=== PATIENT | female | born 1955 | race African-American/Black ===

== ENCOUNTER → 2017-01-18 | Day surgery (SDC) | payer OTHER ==
--- NOTE | 2017-01-15 12:58 | History & Physical Pre-Op ---
General Information and HPI History of Present Illness: Mamie is a 61-year-old female with a long-standing and worsening complaint of a painful bunion right foot and painful hammertoes involving the second third digits right foot. The patient has undergone an extended course of conservative care, including shoe gear and activity modification, rest, immobilization and courses of NSAIDs. None of this is yielded her any significant relief. The patient presents today for preoperative surgical consultation. Allergies/Medications Allergies: Coded Allergies: NO KNOWN ALLERGIES (04/09/16) Home Med list Albuterol Sulfate (Proair Hfa) 90 MCG HFA.AER.AD 2 PUF INH Q4-6 PRN PRN ASTHMA (Reported) Atenolol 25 MG TAB 1 TAB PO DAILY BP (Reported) Glyburide 5 MG TAB 10 MG PO BID DIABETES (Reported) Liraglutide (Victoza 2-Luis) 0.6 MG/0.1 ML (18 MG/3 ML) PEN.INJCTR 1.8 UNITS SC DAILY DM II (Reported) Losartan Potassium (Cozaar) 50 MG TABLET 1 TAB PO DAILY HTN (Reported) METFORMIN HCL (Metformin) 1,000 MG TAB 1 TAB PO BID DIABETES (Reported) MOMETASONE/FORMOTEROL (Dulera 100 Mcg/5 Mcg Inhaler) 1 DIVYA DIVYA 2 INH INH BID PRN ASTHMA (Reported) [ROPINIROLE] RESTLESS LEGS (Reported) SERTRALINE HCL (Sertraline HCl) 50 MG TAB 1 TAB PO DAILY BIPOLAR (Reported) Simvastatin 40 MG TAB 1 TAB PO QPM CHOLESTEROL (Reported) Past History Medical History Neurological: NONE EENT: NONE Cardiovascular: hypertension, hyperlipidemia Respiratory: asthma Gastrointestinal: NONE Hepatic: NONE Renal: NONE Musculoskeletal: osteoarthritis Psychiatric: NONE Endocrine: diabetes Blood Disorders: NONE 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 Ambulation: independent Review of Systems Review of Systems: Unremarkable except for that noted in history of present illness Exam & Diagnostic Data Physical Exam: Lungs clear bilaterally. Heart sounds rate and rhythm regular. Lower extremity physical exam demonstrates intact pedal pulses bilaterally. Pulses dorsalis pedis and posterior tibial arteries are palpable bilaterally. Patient without any sensory motor deficits. Deep tendon reflexes grossly intact. Patient noted to have significant pain with palpation or range of motion through the right first metatarsophalangeal joint. There is also pain noted with palpation to the dorsal aspect of the proximal interphalangeal joints of the second third digits right foot. Assessment/Plan Assessment/Plan: Painful bunion and hammertoes right foot. A lengthy discussion reviewing both surgical and conservative options was held the patient at bedside and the patient elects to go forward with surgery despite the risks. As Ranked By This Provider Problem List: 1. Acquired hallux valgus of right foot Attending MD Review Statement Attending Statement Attending MD Statement: examined this patient
[~2017-01-18] VITALS: Ht 172.7 cm; Wt 104.3 kg
[~2017-01-18] MED LIST: ATENOLOL25 MG PO; COUMADIN 5 MG TA5 MG PO; COZAAR50 M1 PO; DOCUSATE SODIU100 MG PO; DULERA1 ARO INH; GABAPENTIN100 M1 PO; GLYBURIDE5 MG PO; HYZAAR 25 MG-101 TAB PO; MAGNESIUM200 MG PO; METFORMIN1000 MG PO; NICODERM C21 MG/24 H TOP; PERCOCET 325 MG1 TA2 PO; PROAIR HFA8.5 GM INH; ROPINIROLE; SERTRALINE50 MG PO; SIMVASTATIN40 MG PO; TYLENOL TAB 32325 MG PO; VICTOZA 2-0.6 MG/0.1 SC; VITAB121000 PO
--- NOTE | 2017-01-18 10:19 | Operative Report ---
Operative/Inv Procedure Report Surgery Date: 01/18/17 Name of Procedure: 1 Harrison bunionectomy right foot 2 arthroplasty second toe right foot 3 arthroplasty third toe right foot Pre-Operative Diagnosis: 1 hallux valgus right foot 2 hammertoe second toe right foot 3 hammertoe third toe right foot Post-Operative Diagnosis: The same Estimated Blood Loss: scant Surgeon/Filbert Grower: HARDIK JOHN DPM Anesthesia: moderate sedation, block Operative/Procedure Note Note: After obtaining informed consent the patient was brought to the operating room and placed on the operating table in supine position. The patient isn't securely fastened to the operating table utilizing safety belt. After administration of IV sedation, 10 mL of 0.5% Marcaine plain was infiltrated about the patient's right ankle. 2 g of Ancef were delivered intravenously times one dose. A well-padded ankle tourniquet was placed about the patient's right lower extremity. The right foot and ankle within scrubbed prepped and draped in usual aseptic manner. The right lower extremity was elevated to examine to limb, which point the ankle tourniquet was inflated 250 mmHg. Attention directed dorsal aspect the right foot, where 6 cm linear incision was made just medial to course of the extensor hallucis longus tendon. Skin was as a 15 blade and deepened subtenons tissues. All vital neurovascular structures were identified protected. The dissection was then carried down to the capture structures, where an inverted L capsulotomy was performed exposing the medial eminence. This was then resected with sagittal bone saw. Attention was then directed to the interspace, where a lateral release was performed with sectioning of the fibular suspensory ligament and the oblique head of the abductor hallucis tendon. The extensor listless peritenon was identified and tenotomized. The dissection was then carried distally onto the proximal phalanx with the periosteum incised reflected. A medially based wedge osteotomy was performed and then fixated utilizing standard AO fixation techniques. The capture structures were reapproximated with 3-0 Vicryl and the subtenons tissues reapproximated 4-0 Vicryl. The skin is then reapproximated 4-0 Monocryl. Attention was then directed to the proximal interphalangeal joints of the second third digits. 2 converging semielliptical incisions centered over the proximal interphalangeal joints were incised with 15 blade and deepened subtenons tissues. The ellipses of skin were freed and passed from the operative field. Extensor tenotomies were then performed exposing the heads of the proximal phalanges of the second third digits. These were then resected with sagittal bone saw. The extensor tendons were reapproximated 4-0 Vicryl and the skin edges reapproximated 4-0 nylon. Incision was dressed with Xeroform 4 x 4's Kerlix and Hasmukh wrap. The patient noted tolerate both procedure and anesthesia well and the patient was transported from the operating room to recovery by sent stable best assess intact all digits right foot.
== END ==
LOC: STS 02:39
DX: M20.11 Hallux valgus (acquired), right foot (principal); M20.41 Other hammer toe(s) (acquired), right foot; E11.8 Type 2 diabetes mellitus with unspecified complications; Z79.84 Long term (current) use of oral hypoglycemic drugs; F17.200 Nicotine dependence, unspecified, uncomplicated
CPT/HCPCS: 88304; 88305; J1885; J2001; J2250

== ENCOUNTER 2017-02-14 17:58 | Emergency (ER) | payer OTHER ==
[~2017-02-14] VITALS: Ht 172.7 cm; Wt 104.3 kg
[2017-02-14 18:43] LABS: ABSOLUTE BASOPHIL COUNT 0 /CUMM (0.0-0.2); ABSOLUTE EOSINOPHIL COUNT 0.1 /CUMM (0.0-0.7); ABSOLUTE GRANULOCYTE CT 6.3 /CUMM (1.4-6.5); ABSOLUTE MONOCYTE COUNT 0.7 /CUMM (0.10-0.60); BASOPHIL % 0.2 % (0.0-2.0); EOSINOPHIL % 1.2 % (0-5); HEMATOCRIT 36.3 % (37-47); MEAN CORPUSCULAR HGB 28.1 PG (27.0-31.0); MEAN CORPUSCULAR HGB CONC 32.8 G/DL (33.0-37.0); MEAN CORPUSCULAR VOLUME 85.8 FL (81.0-99.0); MEAN PLATELET VOLUME 9.3 FL (7.4-10.4); PLATELET COUNT 239 /CUMM (130-400); RBC DISTRIBUTION WIDTH 13.6 % (11.5-14.5); RED BLOOD CELL CT 4.24 /CUMM (4.20-5.40); WHITE BLOOD CELL COUNT 10.2 /CUMM (4.8-10.8)
--- NOTE | 2017-02-14 18:43 | RADIOLOGY REPORT ---
EXAMINATION: XR FOOT, RIGHT CLINICAL INFORMATION: Wound dehiscence. Concern for osteomyelitis. COMPARISON: None TECHNIQUE: AP, lateral, and oblique views of the right foot. FINDINGS: Patient has had prior osteotomy of the medial side of the head of the first metatarsal, status post hallux valgus surgery. Orthopedic screw through proximal to mid shaft of the proximal phalanges of the great toe. There is focal bone destruction of the medial side of the head of the first metatarsal stenting from the periarticular bone into the metaphysis. This is consistent with osteomyelitis. The area of bone destruction lies adjacent to the head of the screw in the proximal phalanges. There is been prior osteotomy of the distal proximal phalanx of the second and third toe. Small plantar calcaneal spur. There is small spur at the dorsum of the talar neck at the talonavicular articulation. IMPRESSION: Radiographic evidence of osteomyelitis of the medial head of first metatarsal.
--- NOTE | 2017-02-14 20:42 | ED ANKLE/FOOT INJURY COMPLAINT ---
History of Present Illness General Chief Complaint: General Adult Stated Complaint: ?INFECTION OF RT FOOT S/P SURGERY X 1 MONTH AGO Source: patient, old records Exam Limitations: no limitations Vital Signs & Intake/Output Vital Signs & Intake/Output Vital Signs Date Time Temp Pulse Resp B/P B/P Pulse O2 O2 Flow FiO2 Mean Ox Delivery Rate 02/144 96 Room Air 02/15 2048 96.4 81 18 141/64 97 ED Intake and Output 02/15 0000 02/14 1200 Intake Total 0 Output Total Balance 0 Intake, IV 0 Patient 230 lb Weight Weight Reported by Patient Measurement Method Allergies Coded Allergies: NO KNOWN ALLERGIES (04/09/16) Reconcile Medications Albuterol Sulfate (Proair Hfa) 90 MCG HFA.AER.AD 2 PUF INH Q4-6 PRN PRN ASTHMA (Reported) Atenolol 25 MG TAB 1 TAB PO DAILY BP (Reported) Glyburide 5 MG TAB 10 MG PO BID DIABETES (Reported) Liraglutide (Victoza 2-Luis) 0.6 MG/0.1 ML (18 MG/3 ML) PEN.INJCTR 1.8 UNITS SC DAILY DM II (Reported) Losartan Potassium (Cozaar) 50 MG TABLET 1 TAB PO DAILY HTN (Reported) METFORMIN HCL (Metformin) 1,000 MG TAB 1 TAB PO BID DIABETES (Reported) MOMETASONE/FORMOTEROL (Dulera 100 Mcg/5 Mcg Inhaler) 1 DIVYA DIVYA 2 INH INH BID PRN ASTHMA (Reported) [ROPINIROLE] RESTLESS LEGS (Reported) SERTRALINE HCL (Sertraline HCl) 50 MG TAB 1 TAB PO DAILY BIPOLAR (Reported) Simvastatin 40 MG TAB 1 TAB PO QPM CHOLESTEROL (Reported) Triage Note: PT COMES IN AFTER HAVING SURGERY 1 MONTH AGO ON HER RIGHT GREAT TOE. PT STATES SHE HAD TWO HAMMER TOES AND HAS A SCREW IN HER TOE. PT HAS DRAINAGE COMING FROM SUTURE LINE THAT SEEMS TO HAVE DEHISED. PT HAD SURGERY BY DR. JOHN. Triage Nurses Notes Reviewed? yes HPI: Patient presents for evaluation of worsening numbness and black discoloration in the area of her right foot surgery that occurred about one month ago. Patient states symptoms have been constant and getting worse over the past 2 weeks. She denies any associated fever or trauma. She states she does get some drainage from the wound but denies any associated redness. Nothing seems to make her symptoms better at this point. Past History Travel History Traveled to [place] past 21 day No Medical History Any Pertinent Medical History? 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 No Review of Systems Review of Systems Constitutional: Reports: no symptoms. EENTM: Reports: no symptoms. Respiratory: Reports: no symptoms. Cardiovascular: Reports: no symptoms. GI: Reports: no symptoms. Genitourinary: Reports: no symptoms. Musculoskeletal: Reports: see HPI. Skin: Reports: see HPI. Neurological/Psychological: Reports: see HPI. Hematologic/Endocrine: Reports: no symptoms. Immunologic/Allergic: Reports: no symptoms. All Other Systems: Reviewed and Negative Physical Exam Physical Exam Leg/Knee/Thigh Left: SEE BELOW Comments: Gen.: Well-nourished, well-developed, no acute respiratory distress. Head: Normocephalic, atraumatic. Eyes: Normal inspection bilaterally Ears: Normal inspection bilaterally Nose: Normal inspection, nasal cannula in place Throat/mouth : Moist mucosa Neck: Supple, full range of motion, no goiter Heart: Regular rate and rhythm Lungs: Quiet respirations Back: Normal range of motion Extremities: Right foot: Longitudinal surgical scar over the dorsal aspect of the right metatarsal phalangeal joint with no obvious drainage or erythema. Surrounding this is an area of black discoloration and "hardness" that extends to the base of the second and third toes. Neurologic: Cranial nerves grossly intact, speech is clear Skin: warm and dry Psychiatric: Calm, cooperative, no apparent delusions or hallucinations Diagram Feet Top: 1) SURGICAL SCAR 2) BLACK DISCOLORATION/SKIN HARDNESS 3) BLACK DISCOLORATION/SKIN HARDNESS Progress Differential Diagnosis: HEMATOMA, SKIN NECROSIS, OSTEOMYELITIS Plan of Care: Orders Procedure Date/time Status COMPREHENSIVE METABOLIC PANEL 02/14 180 Complete CBC WITHOUT DIFFERENTIAL 02/14 1805 Complete Laboratory Tests 02/14/171814: Anion Gap 11, Estimated GFR 57 L, BUN/Creatinine Ratio 16.0, Glucose 82, Calcium 9.6, Total Bilirubin 1.0, AST 18, ALT 41, Alkaline Phosphatase 73, Total Protein 7.0, Albumin 4.0, Globulin 3.0, Albumin/Globulin Ratio 1.3, CBC w Diff NO MAN DIFF REQ, RBC 4.24, MCV 85.8, MCH 28.1, RDW 13.6, MPV 9.3, Gran % 62.0, Lymphocytes % 29.4, Monocytes % 7.2, Eosinophils % 1.2, Basophils % 0.2, Absolute Granulocytes 6.3, Absolute Lymphocytes 3.0, Absolute Monocytes 0.7 H, Absolute Eosinophils 0.1, Absolute Basophils 0, PUBS MCHC 32.8 L Comments: Patient's case discussed with Dr. John who will evaluate the patient's foot tomorrow during her prescheduled appointment. Possible hematoma formation versus skin necrosis discussed. Blood work and x-ray results reviewed with Dr. John. No specific care required other than current care. Patient notified. Departure Departure Disposition: HOME OR SELF CARE Condition: Stable Clinical Impression Primary Impression: Osteomyelitis of toe of right foot Referrals: DORA HERNÁNDEZ,HARDIK ARANA MD,YAHIR (PCP/Family) Additional Instructions: Follow-up with Dr. John tomorrow as scheduled. Return immediately if you spike a fever, began vomiting or any other concerns or worsening. Please note that there might be incidental findings in your evaluation that are unrelated to the current emergency department visit. Please notify your primary care doctor about this emergency department visit in order to obtain and review all of the testing performed so that these incidental findings can be monitored as needed. If you had an x-ray performed, please understand that some fractures may not be seen on the initial set of x-rays. If your symptoms persist you might need a repeat set of x-rays to check for such a fracture. If you had a laceration evaluated, please understand that foreign bodies such as glass or wood may not be visible to the naked eye or on plain x-rays. If the wound becomes red, swollen, increasingly more painful or if there is any drainage from the wound, please have it reevaluated by a physician for the possibility of a retained foreign body. Thank you for choosing the [facility] Emergency Department for your care. It was a pleasure to serve you today. Clinton Mora M.D. [facility] Thank you for choosing the [facility] Emergency Department for your care. It was a pleasure to serve you today. Clinton Mora M.D. [facility] Departure Forms: Customer Survey General Discharge Information
[2017-02-14 20:48] VITALS: BP 141/64
== END 2017-02-14 21:12 ==
LOC: ERH 17:58
PROVIDERS: Emergency Medicine
DX: M86.9 Osteomyelitis, unspecified (principal); I10 Essential (primary) hypertension; E11.9 Type 2 diabetes mellitus without complications; Z79.84 Long term (current) use of oral hypoglycemic drugs; Z72.0 Tobacco use
CPT/HCPCS: 73630-RT

== ENCOUNTER 2017-12-31 13:32 | Emergency (ER) | payer OTHER ==
[~2017-12-31] VITALS: Ht 172.7 cm; Wt 117.0 kg
[~2017-12-31 13:32] MED LIST changes: +ATENOLOL50 M1 PO; +DULERA 100 MCG/13 GM INH; -DULERA1 ARO INH; +GLYBURIDE5 M1 PO; -GLYBURIDE5 MG PO; +LIDOCAINE1 EACH TOP; +LOSARTAN POTAS100 M1 PO; +LOSARTAN-HCTZ1 EAC2 PO; +METFORMIN HCL1000 M1 PO; -METFORMIN1000 MG PO; +REQUIP0.25 MG PO; -SERTRALINE50 MG PO; +SIMVASTATIN10 M1 PO; +VICTOZA 3-0.6 MG/0.1 SC; +ZOLOFT50 M1 PO
--- NOTE | 2017-12-31 14:51 | ED GENERAL ADULT ---
History of Present Illness General Chief Complaint: Shoulder Injury Stated Complaint: RT SHOULDER PAIN Source: patient Exam Limitations: no limitations Vital Signs & Intake/Output Vital Signs & Intake/Output Vital Signs Date Time Temp Pulse Resp B/P B/P Pulse O2 O2 Flow FiO2 Mean Ox Delivery Rate 12/31 1343 96.6 83 18 136/78 94 Room Air Allergies Coded Allergies: NO KNOWN ALLERGIES (04/09/16) Reconcile Medications Albuterol Sulfate (Proair Hfa) 90 MCG HFA.AER.AD 2 PUF INH Q4-6 PRN PRN ASTHMA (Reported) Atenolol 50 MG TABLET 1 TAB PO DAILY HEART (Reported) Glyburide 5 MG TABLET 1 TAB PO BID DIABETES (Reported) Lidocaine 5 % ADH..PATCH 1 PAT TOP DAILY PAIN (Reported) Lidocaine (Lidoderm) 5 % ADH..PATCH 1 PAT TOP DAILY PRN shoulder pain may wear up to 12 hours Liraglutide (Victoza 3-Luis) 0.6 MG/0.1 ML (18 MG/3 ML) PEN.INJCTR 1.8 MG SC DAILY DIABETES (Reported) Losartan Potassium 100 MG TABLET 1 TAB PO DAILY HTN (Reported) Losartan/Hydrochlorothiazide (Losartan-Hctz 100-25 MG Tab) 100 MG-25 MG TABLET 1 TAB PO DAILY HEART (Reported) Metformin HCl 1,000 MG TABLET 1 TAB PO BID DIABETES (Reported) Methylprednisolone. (Medrol) 4 MG TAB.DS.PK 1 DP PO AD shoulder pain 6 on day 1 then reduce by one tablet daily until gone Mometasone/Formoterol (Dulera 100 Mcg/5 Mcg Inhaler) 100 MCG-5 MCG/ACTUATION HFA.AER.AD 2 PUF INH BID PRN SHORTNESS OF BREATH (Reported) Ropinirole Hydrochloride (Requip) 0.25 MG TABLET 2 TAB PO QPM RESTLESS LEGS ( Reported) Sertraline HCl (Zoloft) 50 MG TABLET 1 TAB PO DAILY CHOLESTEROL (Reported) Simvastatin (Simvastatin*) 10 MG TABLET 1 TAB PO QPM CHOLESTEROL (Reported) Triage Note: PT TO ER C/C RIGHT SHOULDER PAIN X YEARS, WORSE RECENTLY. NO KNOWN INJURY OR TRAUMA Triage Nurses Notes Reviewed? yes Onset: Gradual Duration: day(s): Timing: constant HPI: 62 y/o female with h/o HTN, HLD, DM, chronic right shoulder pain presenting with acute on chronic right shoulder pain over the past 2-3 days. Reports diffuse shoulder pain that is worse with movement. Has had difficulty ranging her shoulder. Seen by her PMD 2 days ago and sent for XR. Has not yet received results. Has been using NSAID's without relief. Denies fevers, joint swelling, or trauma. (Hannah Hillman) Past History Travel History Traveled to [place] past 21 day No Medical History Any Pertinent Medical History? 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 No (Hannah Hillman) Review of Systems Review of Systems Constitutional: Reports: no symptoms. EENTM: Reports: no symptoms. Respiratory: Reports: no symptoms. Cardiovascular: Reports: no symptoms. GI: Reports: no symptoms. Genitourinary: Reports: no symptoms. Musculoskeletal: Reports: see HPI. Skin: Reports: no symptoms. Neurological/Psychological: Reports: no symptoms. Hematologic/Endocrine: Reports: no symptoms. Immunologic/Allergic: Reports: no symptoms. (Hannah Hillman) Physical Exam Physical Exam General Appearance: well developed/nourished, no apparent distress, alert, awake , comfortable Head: atraumatic, normal appearance Eyes: Bilateral: normal appearance. Neck: normal inspection Respiratory: normal breath sounds, lungs clear Cardiovascular: regular rate/rhythm Gastrointestinal: soft, non-tender Back: normal inspection Extremities: normal inspection, On exam of the right shoulder there is no erythema, edema, increased warmth, or signs of trauma. Diffuse TTP that is non- focal. Decreased ROM with both active and passive ranging in all directions. Sensation intact. Motor strength decreased. Radial pulse 2+. Hand saw offbearer strength intact. Neurologic/Psych: awake, alert, oriented x 3, normal gait, normal mood/affect Skin: intact, normal color, warm/dry Core Measures ACS in differential dx? No CVA/TIA Diagnosis: No Sepsis Present: No Sepsis Focused Exam Completed? No (Hannah Hillman) Progress Differential Diagnoses I considered the following diagnoses in my evaluation of the patient: [ tendonitis vs bursitis vs OA vs MSK strain, low concern for septic joint] Plan of Care: Orders Procedure Date/time Status XRY-SHOULDER COMPLETE-RIGHT 12/31 1451 Active XR from PMD's office 2 days ago showed the following: IMPRESSION: 1. Mild osteoarthrosis is noted at the right acromioclavicular joint. 2. Tiny soft tissue calcification is noted around the humeral head, consistent with rotator cuff calcific tendinitis versus subacromial-subdeltoid bursitis or combination thereof. Pt had no relief from lidoderm patch. Has already been using NSAIDs without relief. Will trial medrol dose pack. Pt instructed she must monitor her glucose more closely and call her PMD for any high glucose levels as they may increase with steroids. Pt will f/u with ortho and given strict return precautions. Initial ED EKG: none (Hannah Hillman) Departure Departure Disposition: HOME OR SELF CARE Condition: Stable Clinical Impression Primary Impression: Right shoulder pain Referrals: Dasia Wu APRN (PCP/Family) Additional Instructions: Continue naproxen and Lidoderm patches as needed for pain. Take Medrol dosepak as prescribed. Return to monitor urine glucose levels more closely as this medication may increase her blood sugar. Call your primary care provider for any high glucose levels. Follow-up with for reevaluation. Return to the emergency department for any new or worsening symptoms. Departure Forms: Customer Survey General Discharge Information Prescriptions: Current Visit Scripts Lidocaine (Lidoderm) 1 PAT TOP DAILY PRN shoulder pain #30 PAT may wear up to 12 hours Methylprednisolone. 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 I have also reviewed all the pertinent lab results and diagnostic results. I agree with the findings and the plan of care as documented in the PA's/FRENCH EDGE OPERATOR's documentation. [] I have reviewed the ED Record and agree with the PA's/FRENCH EDGE OPERATOR's documentation. [] Additions or exceptions (if any) to the PAs/FRENCH EDGE OPERATOR's note and plan are summarized below: [] (Hipona MD,Chet) Critical Care Note Critical Care Note Critical Care Time: non-applicable (Antonia VALERIO,Hannah)
[2017-12-31 16:30] VITALS: BP 130/76
[2017-12-31] MEDS ORDERED: MEDROL4 M2 PO (16:45)
[2017-12-31] MEDS ORDERED: LIDODERM1 EACH TOP (16:45)
[2018-03-17] MEDS ORDERED: SERTRALINE HCL100 MG PO (22:45)
[2018-03-17] MEDS ORDERED: ATENOLOL25 M1 PO (22:46)
[2018-03-17] MEDS ORDERED: BIOTIN800 MCG PO (22:47)
[2018-03-17] MEDS ORDERED: VITAMIN D2000 UNI1 PO (22:47)
[2018-03-17] MEDS ORDERED: NAPROXEN500 M2 PO (22:47)
[2018-03-18] MEDS ORDERED: PERCOCET 5-3251 EACH PO (00:12)
== END 2017-12-31 18:24 ==
LOC: ERH 13:32
DX: M25.511 Pain in right shoulder (principal)

== ENCOUNTER 2018-03-22 17:50 | Emergency (ER) | payer OTHER ==
[~2018-03-22] VITALS: Ht 172.7 cm; Wt 113.4 kg
[~2018-03-22 17:50] MED LIST changes: +ATENOLOL25 M1 PO; +BIOTIN800 MCG PO; +LIDODERM1 EACH TOP; +MEDROL4 M2 PO; +NAPROXEN500 M2 PO; +PERCOCET 5-3251 EACH PO; +SERTRALINE HCL100 MG PO; +VITAMIN D2000 UNI1 PO
--- NOTE | 2018-03-22 19:25 | RADIOLOGY REPORT ---
EXAMINATION: XR WRIST, LEFT CLINICAL INFORMATION: Dogbite with question of fracture. COMPARISON: None. TECHNIQUE: PA, lateral, and oblique views of the left wrist. FINDINGS: Marked degenerative changes are present at the base of the thumb with osteophyte formation and sclerosis and erosions as well as some subluxation. No acute fractures are seen. There is some apparent disruption of the soft tissues on the ventral aspect of the wrist with soft tissue swelling. IMPRESSION: Marked degenerative changes at the base of the thumb with some subluxation. Soft tissue swelling and disruption of the soft tissues on the ventral aspect of the wrist.
--- NOTE | 2018-03-22 20:21 | RADIOLOGY REPORT ---
EXAMINATION: LEFT KNEE 3 VIEWS CLINICAL INFORMATION: Chronic left knee pain. COMPARISON: None. TECHNIQUE: AP, lateral, oblique views of the left knee were obtained. FINDINGS: There are no fractures or dislocations. There is no knee joint effusion. There is no significant soft tissue swelling. There is mild superior patellar spurring. There is mild tibial spine spurring. IMPRESSION: Mild degenerative change without evidence of acute injury.
[2018-03-22] MEDS ORDERED: AUGMENTIN 875-1 EACH PO (21:49)
--- NOTE | 2018-03-22 21:49 | ED GENERAL ADULT ---
History of Present Illness General Chief Complaint: Animal/Insect Bite Stated Complaint: DOG BITE Source: patient Exam Limitations: no limitations Vital Signs & Intake/Output Vital Signs & Intake/Output Vital Signs Date Time Temp Pulse Resp B/P B/P Pulse O2 O2 Flow FiO2 Mean Ox Delivery Rate 03/22 2151 72 18 120/73 96 Room Air 03/22 2035 66 18 118/60 98 Room Air 03/22 1759 97.1 92 18 132/78 95 Room Air ED Intake and Output 03/23 0000 03/22 1200 Intake Total 240 Output Total Balance 240 Intake, Oral 240 Patient 250 lb Weight Allergies Coded Allergies: NO KNOWN ALLERGIES (04/09/16) Reconcile Medications Albuterol Sulfate (Proair Hfa) 90 MCG HFA.AER.AD 2 PUF INH Q4-6 PRN PRN ASTHMA (Reported) Amoxicillin/Potassium Clav (Augmentin 875-125 Tablet) 875 MG-125 MG TABLET 1 TAB PO BID dog bite Atenolol 25 MG TABLET 1 TAB PO DAILY BP (Reported) Biotin (Unknown Strength) TABLET (Unknown Dose) PO DAILY SUPPLEMENT (Reported ) Cholecalciferol (Vitamin D3) (Vitamin D) (Unknown Strength) TABLET (Unknown Dose) PO DAILY SUPPLEMENT (Reported) Glyburide 5 MG TABLET 2 TAB PO BID DIABETES (Reported) Liraglutide (Victoza 3-Luis) 0.6 MG/0.1 ML (18 MG/3 ML) PEN.INJCTR 1.8 MG SC DAILY DIABETES (Reported) Losartan/Hydrochlorothiazide (Losartan-Hctz 100-25 MG Tab) 100 MG-25 MG TABLET 1 TAB PO DAILY HEART (Reported) Metformin HCl 1,000 MG TABLET 1 TAB PO BID DIABETES (Reported) Mometasone/Formoterol (Dulera 100 Mcg/5 Mcg Inhaler) 100 MCG-5 MCG/ACTUATION HFA.AER.AD 2 PUF INH BID PRN SHORTNESS OF BREATH (Reported) Naproxen 500 MG TABLET 1 TAB PO Q12H PRN PAIN (Reported) Oxycodone HCl/Acetaminophen (Percocet 5-325 MG Tablet) 5 MG-325 MG TABLET 1 TAB PO BID pain Ropinirole Hydrochloride (Requip) 0.25 MG TABLET 2 TAB PO QPM RESTLESS LEGS ( Reported) Sertraline HCl 100 MG TABLET 1 TAB PO DAILY MENTAL HEALTH (Reported) Simvastatin (Simvastatin*) 10 MG TABLET 1 TAB PO QPM CHOLESTEROL (Reported) Triage Note: PT STATES THAT HER AND HER WERE BITTEN BY A DOG WHILE TRYING TO STOP DOG FROM ATTACKING THERE DOGS, PT WAS BIT ON L HAND /WRIST AND ALSO HAS ABRASIONS TO RLE FROM GROUND Triage Nurses Notes Reviewed? yes Onset: Abrupt Duration: minute(s): Timing: single episode today HPI: 62-year-old female with a history of hypertension, hyperlipidemia, diabetes, and asthma presenting with dog bites to her left wrist and right lower leg sustained just prior to arrival. Patient reports that her and her were breaking up a fight between her dog and 3 stray dogs when they were bit by 1 of the stray dogs. The stray dogs are being detained by animal control. Patient's tetanus was updated last Tuesday she was seen in the emergency department for a finger laceration that was sutured. Denies numbness or paresthesias. Past History Travel History Traveled to [place] past 21 day No Medical History Any Pertinent Medical History? see below for history Neurological: NONE EENT: NONE Cardiovascular: hypertension, hyperlipidemia Respiratory: asthma Gastrointestinal: NONE Hepatic: NONE Renal: NONE Musculoskeletal: osteoarthritis Psychiatric: NONE Endocrine: diabetes Blood Disorders: NONE Cancer(s): NONE HEAD OF ART/Reproductive: NONE History of MRSA: No History of VRE: No History of CDIFF: No Surgical History Surgical History: HAMMER TOE Psychosocial History Who do you live with Spouse Services at Home None What is your primary language Polish Tobacco Use: Never used ETOH Use: denies use Illicit Drug Use: denies illicit drug use Family History Hx Contributory? No Review of Systems Review of Systems Constitutional: Reports: no symptoms. EENTM: Reports: no symptoms. Respiratory: Reports: no symptoms. Cardiovascular: Reports: no symptoms. GI: Reports: no symptoms. Genitourinary: Reports: no symptoms. Musculoskeletal: Reports: see HPI. Skin: Reports: see HPI. Neurological/Psychological: Reports: no symptoms. Hematologic/Endocrine: Reports: no symptoms. Immunologic/Allergic: Reports: no symptoms. All Other Systems: Reviewed and Negative Physical Exam Physical Exam General Appearance: well developed/nourished, no apparent distress, alert, awake Head: atraumatic, normal appearance Eyes: Bilateral: normal appearance. Neck: normal inspection Respiratory: normal breath sounds, lungs clear Cardiovascular: regular rate/rhythm Gastrointestinal: soft, non-tender Back: normal inspection Extremities: ~1cm linear lac to medial left wrist and ~2-3 cm irregular lac to anterior left wrist, unrestricted ROM with wrist flexion, extension, ulnar/ radial deviation, sensation intact, motor strength 5/5, radial pulse 2+, annular abrasion to anterior distal RLE over the mid fung. THe RLE is NV intact. Neurologic/Psych: awake, alert, oriented x 3, normal gait, normal mood/affect Skin: intact, normal color, warm/dry Core Measures ACS in differential dx? No CVA/TIA Diagnosis: No Sepsis Present: No Sepsis Focused Exam Completed? No Progress Differential Diagnoses I considered the following diagnoses in my evaluation of the patient: [Dog bite versus rabies exposure versus tetanus exposure versus fracture versus tendon injury versus nerve injury versus vascular injury] Plan of Care: Current Medications Sig/Maurice Start time Last Medication Dose Stop Time Status Admin Rabies Immune 2,260 UNITS ONCE ONE 03/22 1900 UNVr Globulin 03/22 1901 (Rabies Immune Globlulin Inj) x-ray IMPRESSION: Marked degenerative changes at the base of the thumb with some subluxation. Soft tissue swelling and disruption of the soft tissues on the ventral aspect of the wrist. Patient has full unrestricted range of motion at the MCP and IP joint of the thumb. She is declining attempt to reduce possible subluxation. Patient's left wrist lacerations were extensively irrigated with normal saline and Betadine, and repaired with loose skin approximation. Abrasion to patient's right distal leg was extensively irrigated with sterile saline and Betadine, and was dressed with Xeroform and Kerlex. Patient was given first rabies vaccine, but pharmacy does not have enough rabies immunoglobulin in stock for administration today. Discussed with the ED MD and the patient can either follow up with another emergency department for administration today, or can return to our emergency department when the immunoglobulin is restocked as the patient has 7 days for it to be administered. Discussed with the patient and she would prefer to return to [place] for the rabies immunoglobulin. When the patient returns in 3 days for her second rabies vaccine and she will also be administered the rabies immunoglobulin at that time. During the patient's emergency department stay she began to feel shaky and diaphoretic, her blood sugar was noted to be 58, she was given to orange juices and a turkey sandwich with improvement of her blood sugar to 86. Patient had resolution of her symptoms and felt back to baseline after eating and drinking. Patient was counseled on wound care and strict return precautions. Initial ED EKG: none Departure Departure Disposition: HOME OR SELF CARE Condition: Stable Clinical Impression Primary Impression: Dog bite Referrals: Dasia Wu APRN (PCP/Family) Additional Instructions: Keep the wound clean and dry. Take Augmentin as prescribed. Follow up on Tuesday for your rabies immunoglobulin and your next rabies vaccine. Use Motrin as needed for pain. Follow-up with your primary care provider for reevaluation. Return to the emergency department for any new or worsening symptoms. Departure Forms: Customer Survey General Discharge Information Prescriptions: Current Visit Scripts Amoxicillin/Potassium Clav (Augmentin 875-125 Tablet) 1 TAB PO BID #20 TAB Procedures Laceration/Wound Repair Laceration/Wound Repair: Wound Location: upper extremity (left wrist) Wound's Depth, Shape: irregular (anterior wrist), linear (medial wrist) Irrigated w/ Saline (ccs): 360 Betadine Prep? Yes Anesthesia: 1% lidocaine Suture Size/Type: 5:0, nylon Number of Sutures: 3 (2 ant wrist and 1 med wrist) Tetanus Status: up to date Critical Care Note Critical Care Note Critical Care Time: non-applicable
[2018-03-22 21:51] VITALS: BP 120/73
== END 2018-03-22 21:57 ==
LOC: ERH 17:50
DX: S61.552A Open bite of left wrist, initial encounter (principal); S81.851A Open bite, right lower leg, initial encounter; W54.0XXA Bitten by dog, initial encounter
CPT/HCPCS: 73110-LT; 73560-LT; 90471; 96374; J2001

== ENCOUNTER 2018-03-28 10:30 | Emergency (ER) | payer OTHER ==
[~2018-03-28] VITALS: Ht 172.7 cm; Wt 113.4 kg
[~2018-03-28 10:30] MED LIST changes: +AUGMENTIN 875-1 EACH PO
[2018-03-28 10:32] VITALS: BP 145/75
--- NOTE | 2018-03-28 10:42 | ED ANIMAL BITE/WOUND CHECK ---
History of Present Illness General Chief Complaint: Suture Removal/Wound Recheck Stated Complaint: SUTURE REMOVAL Source: patient Exam Limitations: no limitations Vital Signs & Intake/Output Vital Signs & Intake/Output Vital Signs Date Time Temp Pulse Resp B/P B/P Pulse O2 O2 Flow FiO2 Mean Ox Delivery Rate 03/28 1032 98.3 86 20 145/75 96 Room Air Allergies Coded Allergies: NO KNOWN ALLERGIES (04/09/16) Reconcile Medications Albuterol Sulfate (Proair Hfa) 90 MCG HFA.AER.AD 2 PUF INH Q4-6 PRN PRN ASTHMA (Reported) Amoxicillin/Potassium Clav (Augmentin 875-125 Tablet) 875 MG-125 MG TABLET 1 TAB PO BID dog bite Atenolol 25 MG TABLET 1 TAB PO DAILY BP (Reported) Biotin (Unknown Strength) TABLET (Unknown Dose) PO DAILY SUPPLEMENT (Reported ) Cholecalciferol (Vitamin D3) (Vitamin D) (Unknown Strength) TABLET (Unknown Dose) PO DAILY SUPPLEMENT (Reported) Glyburide 5 MG TABLET 2 TAB PO BID DIABETES (Reported) Liraglutide (Victoza 3-Luis) 0.6 MG/0.1 ML (18 MG/3 ML) PEN.INJCTR 1.8 MG SC DAILY DIABETES (Reported) Losartan/Hydrochlorothiazide (Losartan-Hctz 100-25 MG Tab) 100 MG-25 MG TABLET 1 TAB PO DAILY HEART (Reported) Metformin HCl 1,000 MG TABLET 1 TAB PO BID DIABETES (Reported) Mometasone/Formoterol (Dulera 100 Mcg/5 Mcg Inhaler) 100 MCG-5 MCG/ACTUATION HFA.AER.AD 2 PUF INH BID PRN SHORTNESS OF BREATH (Reported) Naproxen 500 MG TABLET 1 TAB PO Q12H PRN PAIN (Reported) Oxycodone HCl/Acetaminophen (Percocet 5-325 MG Tablet) 5 MG-325 MG TABLET 1 TAB PO BID pain Ropinirole Hydrochloride (Requip) 0.25 MG TABLET 2 TAB PO QPM RESTLESS LEGS ( Reported) Sertraline HCl 100 MG TABLET 1 TAB PO DAILY MENTAL HEALTH (Reported) Simvastatin (Simvastatin*) 10 MG TABLET 1 TAB PO QPM CHOLESTEROL (Reported) Triage Note: PT TO ED FOR SUTURE REMOVAL TO LEFT WRIST PLACED 03/22. ALSO NEEDS 3RD RABIES VACCINE. Triage Nurses Notes Reviewed? yes Onset: Abrupt Duration: week(s): (1), better, continues in ED Timing: single episode today Injury Environment: home Is Injury an Animal Bite? Yes Animal Type: dog Context of Animal Attack: animals fighting Animal Immunization Status: unknown LMP (ages 10-50): post menopausal HPI: 62-year-old female presents for suture removal and rabies vaccine. Patient was seen here one week ago for a dog bite. The lacerations were sutured patient was placed on Augmentin and was given rabies vaccinations. She has been taking antibiotics as directed feels that the wounds are healing well. There's been no discharge. She does report still some swelling and some tenderness. No fevers or spreading redness. (Shayan Ellison) Past History Travel History Traveled to [place] past 21 day No Medical History Any Pertinent Medical History? see below for history Neurological: NONE EENT: NONE Cardiovascular: hypertension, hyperlipidemia Respiratory: asthma Gastrointestinal: NONE Hepatic: NONE Renal: NONE Musculoskeletal: osteoarthritis Psychiatric: NONE Endocrine: diabetes Blood Disorders: NONE Cancer(s): NONE [facility]/Reproductive: NONE History of MRSA: No History of VRE: No History of CDIFF: No Surgical History Surgical History: HAMMER TOE Psychosocial History Who do you live with Spouse Services at Home None What is your primary language Urdu Tobacco Use: Current Daily Use Daily Tobacco Use Amount/Type: => 5 Cigarettes daily ETOH Use: denies use Illicit Drug Use: denies illicit drug use Family History Hx Contributory? No (Shayan Ellison) Review of Systems Review of Systems Constitutional: Reports: no symptoms. EENTM: Reports: no symptoms. Respiratory: Reports: no symptoms. Cardiovascular: Reports: no symptoms. GI: Reports: no symptoms. Genitourinary: Reports: no symptoms. Musculoskeletal: Reports: no symptoms. Skin: Reports: see HPI (LACERATION). Neurological/Psychological: Reports: no symptoms. Hematologic/Endocrine: Reports: no symptoms. Immunologic/Allergic: Reports: no symptoms. All Other Systems: Reviewed and Negative (Shayan Ellison) Physical Exam Physical Exam General Appearance: well developed/nourished, no apparent distress, alert, awake Head: atraumatic, normal appearance Eyes: Bilateral: normal appearance, EOMI. Ears, Nose, Throat: hearing grossly normal Neck: normal inspection, supple, full range of motion Respiratory: no respiratory distress Peripheral Pulses: 2+ radial (R), 2+ radial (L) Back: normal inspection, normal range of motion Extremities: THERE ARE 2 1 CM WELL-HEALED LACERATIONS LOCATED ON THE LEFT WRIST. sMALL AMOUNT OF SOFT TISSUE SWELLING AND INDURATION NO FOCAL QUADRANT AREAS NO ERYTHEMA AND NO DISCHARGE NO TENDERNESS. fULL RANGE OF MOTION OF THE WRIST IS INTACT NEUROVASCULAR SUPPLY INTACT Neurologic/Psych: no motor/sensory deficits, awake, alert, oriented x 3, normal gait, normal mood/affect Skin: intact, normal color, warm/dry Lymphatic: no anterior cervical bing (Shayan Ellison) Progress Differential Diagnosis: abscess, cellulitis, joint infection, tenosysnovitis Plan of Care: Current Medications Sig/Maurice Start time Last Medication Dose Stop Time Status Admin Rabies Vaccine 1 SYR ONCE ONE 03/28 104 UNVr (Rabies (Vaccine) 03/28 1046 Inj (1ML)) Patient is here for suture removal. The wounds appear to be healing well. No signs of infection. Patient was instructed to continue antibiotics the sutures removed without difficulty. Warm compresses. Tylenol IBUPROFEN for pain. Rabies vaccine administered return in one week for next rabies vaccine and wound check. Discussed return to cautions return sooner with any concern. (Shayan Ellison) Departure Departure Disposition: HOME OR SELF CARE Condition: Stable Clinical Impression Primary Impression: Visit for suture removal Referrals: Dasia Wu APRN (PCP/Family) Additional Instructions: Keep area clean and dry. Continue antibiotics for full course. LOOK FOr signs of infection like redness swelling discharge or pain. Make a follow-up with YOUr primary care doctor for recheck in a few days. Monitor symptoms return or any concerns. Return in one week for final rabies vaccine Departure Forms: Customer Survey General Discharge Information (Shayan Ellison) PA/QUALITY CONTROL DIRECTOR Co-Sign Statement Statement: ED Attending supervision documentation- [] I saw and evaluated the patient. I have also reviewed all the pertinent lab results and diagnostic results. I agree with the findings and the plan of care as documented in the PA's/QUALITY CONTROL DIRECTOR's documentation. [Y] I have reviewed the ED Record and agree with the PA's/QUALITY CONTROL DIRECTOR's documentation. [] Additions or exceptions (if any) to the PAs/QUALITY CONTROL DIRECTOR's note and plan are summarized below: [] (Beverley CLEMENT,[facility])
== END 2018-03-28 11:00 ==
LOC: ERH 10:30
DX: Z23 Encounter for immunization (principal); Z48.02 Encounter for removal of sutures
CPT/HCPCS: 90471; 99281